=== PATIENT | female | born 1990 | race Caucasian/White ===

== ENCOUNTER 2017-09-17 20:17 | Outpatient (CLI) | payer BC ==
[2017-09-17] MEDS: TERBUTALINE 1 MG/ML INJ SC (23:13)
== END 2017-09-18 00:30 | disposition home or self-care (01) ==
LOC: OBT 09-18 00:30 → L-D 20:18
DX: O42.913 Preterm premature rupture of membranes, unspecified as to length of time between rupture and onset of labor, third trimester (principal); Z3A.36 36 weeks gestation of pregnancy
CPT/HCPCS: 76818

== ENCOUNTER 2017-10-08 06:45 | Inpatient (IN) | payer BC ==
[2017-10-08 08:12] LABS: RUPTURE FETAL MEMBRANES POSITIVE (NEGATIVE)
[2017-10-08] MEDS ORDERED: MISOPROSTOL 200 MCG TAB PR ×2 (08:30→20:00)
[2017-10-08] MEDS ORDERED: IBUPROFEN 600 MG TAB PO (08:30)
[2017-10-08] MEDS ORDERED: METHYLERGONOVINE 0.2 MG INJ IM ×2 (08:30→20:00)
[2017-10-08] MEDS ORDERED: BUTORPHANOL 2 MG INJ IV (08:30)
[2017-10-08] MEDS ORDERED: OXYTOCIN 30 UNITS/LR 500 ML IV ×3 (08:30→20:00)
[2017-10-08] MEDS ORDERED: CARBOPROST 250 MCG INJ IM ×2 (08:30→20:00)
[2017-10-08] MEDS ORDERED: LIDOCAINE 1% (MPF) 30 ML INJ INJ (08:30)
[2017-10-08] MEDS: LACTATED RINGER'S 1,000 ML IV ×4 (08:58→18:48)
[2017-10-08] MEDS: OXYTOCIN 30 UNITS/LR 500 ML IV ×2 (11:32→19:52)
[2017-10-08 11:57] LABS: ADD MAN DIFF? NO
[2017-10-08 12:02] LABS: BASOPHILS % 0.2 % (0.0-2.0); EOSINOPHILS # 0.1 10^3/ul (0.0-0.5); EOSINOPHILS % 0.9 % (0.0-7.0); HEMATOCRIT 37.6 % (37.0-47.0); HEMOGLOBIN 12.3 g/dl (12.0-16.0); LYMPHOCYTES # 1.3 10^3/ul (0.8-2.9); LYMPHOCYTES % 15.7 % (15.0-51.0); MEAN CORPUSCULAR HEMOGLOBIN 26.7 pg (29.0-33.0); MEAN CORPUSCULAR HGB CONC 32.7 g/dl (32.0-37.0); MEAN CORPUSCULAR VOLUME 81.6 fl (82.0-101.0); MEAN PLATELET VOLUME 10.8 fl (7.4-10.4); MONOCYTE # 0.4 10^3/ul (0.3-0.9); MONOCYTES % 4.5 % (0.0-11.0); NEUTROPHIL # 6.6 10^3/ul (1.6-7.5); PLATELET COUNT 233 10^3/UL (140-415); RED BLOOD COUNT 4.61 10^6/ul (4.20-5.40); RED CELL DISTRIBUTION WIDTH 14.8 % (11.5-14.5)
[2017-10-08 12:02] LABS: WHITE BLOOD COUNT 8.5 10^3/ul (4.8-10.8)
[2017-10-08 12:25] LABS: INR 1.03; PARTIAL THROMBOPLASTIN TIME 30.6 Sec (25.0-35.0); PROTIME 13.6 Sec (11.9-14.9); PT RATIO 1.1
[2017-10-08] MEDS ORDERED: FENTAnyl 2MCG/ML-ROPIV 0.2% 100 ML (14:26)
[2017-10-08 14:28] LABS: HEPATITIS B SURFACE ANTIGEN NEGATIVE (NEGATIVE)
[2017-10-08] MEDS ORDERED: NALOXONE (0.4 MG/ML) INJ IV (17:30)
[2017-10-08] MEDS ORDERED: DIPHENHYDRAMINE 50 MG INJ IV (17:30)
[2017-10-08] MEDS ORDERED: ONDANSETRON 4 MG INJ IV (17:30)
[2017-10-08] MEDS ORDERED: FENTAnyl 2MCG/ML-ROPIV 0.2% 100 ML BAG EPI (17:30)
[2017-10-08] MEDS: LACTATED RINGER'S 1,000 ML IV* (19:51)
[2017-10-08] MEDS ORDERED: OXYCODONE/ASPIRIN (4.88/325) TAB PO (20:00)
[2017-10-08 21:20] LABS: RAPID PLASMA REAGIN NONREACTIVE (NR)
[2017-10-08] MEDS: IBUPROFEN 600 MG TAB PO (23:11)
[2017-10-09] MEDS: LANOLIN 7 GM TUBE TOP ×2 (00:16→23:24)
[2017-10-09] MEDS: OXYTOCIN 30 UNITS/LR 500 ML IV (00:16)
[2017-10-09] MEDS: WITCH HAZEL/GLYCERIN PAD PR (01:20)
[2017-10-09] MEDS: BENZOCAINE 20% 56 ML SPRAY TOP (01:24)
[2017-10-09] MEDS: LACTATED RINGER'S 1,000 ML IV* ×2 (03:51→10:18)
[2017-10-09] MEDS ORDERED: INFLUENZA VIRUS VACCINE 0.5 ML (DISPENSING) IM* (04:30)
[2017-10-09] MEDS: IBUPROFEN 600 MG TAB PO ×5 (05:44→23:24)
[2017-10-09 09:16] LABS: ADD MAN DIFF? NO
[2017-10-09 09:19] LABS: BASOPHILS % 0.2 % (0.0-2.0); EOSINOPHILS # 0.1 10^3/ul (0.0-0.5); EOSINOPHILS % 0.8 % (0.0-7.0); HEMATOCRIT 34.6 % (37.0-47.0); HEMOGLOBIN 11.5 g/dl (12.0-16.0); LYMPHOCYTES # 1.5 10^3/ul (0.8-2.9); LYMPHOCYTES % 12.7 % (15.0-51.0); MEAN CORPUSCULAR HEMOGLOBIN 26.8 pg (29.0-33.0); MEAN CORPUSCULAR HGB CONC 33.2 g/dl (32.0-37.0); MEAN CORPUSCULAR VOLUME 80.7 fl (82.0-101.0); MEAN PLATELET VOLUME 10.3 fl (7.4-10.4); MONOCYTE # 0.7 10^3/ul (0.3-0.9); MONOCYTES % 6.4 % (0.0-11.0); NEUTROPHIL # 9.2 10^3/ul (1.6-7.5); NEUTROPHILS % 79.4 % (39.0-77.0); PLATELET COUNT 208 10^3/UL (140-415); RED BLOOD COUNT 4.29 10^6/ul (4.20-5.40); RED CELL DISTRIBUTION WIDTH 14.8 % (11.5-14.5)
[2017-10-09 09:19] LABS: WHITE BLOOD COUNT 11.5 10^3/ul (4.8-10.8)
[2017-10-10] MEDS: IBUPROFEN 600 MG TAB PO ×2 (06:27→11:43)
[2017-10-10] MEDS: INFLUENZA VIRUS VACCINE 0.5 ML (DISPENSING) IM* (09:00)
[2017-10-10] MEDS: DIPHTH/TET/ACEL PERTUSS (ADULT) 0.5 ML VIAL IM* (15:35)
== END 2017-10-10 16:46 | disposition home or self-care (01) | DRG 775 ==
LOC: OBT 06:45 → L-D 06:49 → OBT 08:30 → L-D 08:30 → PP1 23:29
PROVIDERS: Obstetrics & Gynecology
PROC: 10E0XZZ Delivery of Products of Conception, External Approach (ICD-10-PCS; principal; 2017-10-08)
PROC: 0HQ9XZZ Repair Perineum Skin, External Approach (ICD-10-PCS; 2017-10-08)
DX: O70.0 First degree perineal laceration during delivery (principal); Z37.0 Single live birth; Z3A.39 39 weeks gestation of pregnancy
CPT/HCPCS: 62319; 76815; 76818; 84112; 85025; 85610; 85730; 86592; 86850; 86900; 86901; 87340; 90686; 90715